=== PATIENT | female | born 1945 | race Caucasian/White ===

== ENCOUNTER 2024-10-27 11:22 | Emergency (ER) | payer OTHER ==
[~2024-10-27] VITALS: Ht 167.6 cm; Wt 49.9 kg
[2024-10-27] MEDS ORDERED: KETOROLAC TROMETHAMINE 60 MG VIAL IM STA (12:05)
== END 2024-10-27 13:50 | disposition home or self-care (01) ==
LOC: ER 11:24
DX: S50.02XA Contusion of left elbow, initial encounter (principal); W10.8XXA Fall (on) (from) other stairs and steps, initial encounter; Y93.89 Activity, other specified; Y92.89 Other specified places as the place of occurrence of the external cause; Y99.8 Other external cause status; M54.9 Dorsalgia, unspecified
CPT/HCPCS: 71250; 73070; 96372; 99284; J1885